=== PATIENT | female | born 1980 ===

== ENCOUNTER → 2021-01-07 | Outpatient (CLI) | payer OTHER ==
[~2021-01-07] MED LIST: NATURE THROID PO
== END ==
LOC: LAB 12:09 → LAB SHORT 12:09
DX: D48.5 Neoplasm of uncertain behavior of skin (principal); D36.14 Benign neoplasm of peripheral nerves and autonomic nervous system of thorax; Z91.040 Latex allergy status
CPT/HCPCS: 88305